=== PATIENT | female | born 1985 | race African-American/Black ===

== ENCOUNTER 2021-11-21 10:15 | Emergency (ER) | payer SELFPAY ==
[~2021-11-21] VITALS: Ht 172.7 cm; Wt 97.5 kg
--- NOTE | 2021-11-21 11:48 | NUR ---
SS consult: SS Consult requested for homelessness. The pt. is a 36-year-old Black female patient who came in for leg cramps and feeling dehydrated. Upon SS consult, the pt. is Alert & Oriented x 4 and makes good eye contact. The pt. appears disheveled with depressed mood & flat affect. pt.'s speech and thought process are WNL. Pt. remained calm & cooperative throughout interview. Pt. states she is having thoughts of suicide with no plan. pt. stated, "if I do not have luck out here in [place] I will just end my life. Pt. states she was hospitalized in 2019 [place] for SI. Pt. Refused to disclose if she has attempted to hurt herself in the past. Pt. denies HI and denies hallucinations. Pt. denies any previous diagnosis of mental illness. FARSHAD explored pt.'s living situation. Patient states she moved to [place] from [facility] as of November 09, 2021. Pt. states she moved because "people are after me". Pt. is guarded and refused to provide detailed information. FARSHAD explored pt.'s drug & ETOH use. Pt. denies any drug or alcohol use. Pt. is ambulatory and independent with all his ADL's per pt. FARSHAD explored pt.'s support system. Pt. states her family is in [place] but she is not in communication with them at this time. Pt. reports she as Medicaid from [place], [place] and provided her member ID FARSHAD provided tis to admitting to verify benefits. Plan: SW will be referred pt. to [facility] for inpatient psychiatric treatment when labs and insurance re verified. FARSHAD provided pt. with homeless and mental health resources, and she accepted them. Pt. signed homeless waiver and it was placed in the pt.'s chart. FARSHAD discussed DC plan with Krysten LEMON. Year-round shelters: [facility] [place] [address] [place], [place] [id number] ; [facility] [place] [address] [place] [address]; [place] [facility] [id number] [facility]. [facility] [address] Hygiene: [facility] [address] [place] ; [facility] [address] [facility] ; [facility] [address] . Food Resources: [facility] at [facility]- [address] [place]; Meet Each Need with Dignity ([facility]) [address] [place]; [facility] [address] [facility]; [facility] [address] [facility] [place]. Mental Health resources provided: [facility] [address] [place], [place] [address] ; [facility] [address] [facility] [address], [place], [place] [id number] ; [facility] [address] [place], [place] [phone] ; [facility] [place], [place] [address] Healthcare Clinics: [facility] [address] [facility], [address] [place]. [place] ; [facility] [address] [facility] [facility] [facility] [address] [place] [address]; [facility] [place] [address] [facility]. [place] [phone] Counseling--Outpatient [facility] [address], [address] [place], [place] [address] (Specializes in in-depth psychotherapy for emotional distress: anxiety, depression, interpersonal conflicts, life transitions, childhood abuse) [facility] [address] [place], [place] [address] (Assist with solving problem marital difficulties, separation & divorce, aging parents, & grief, chronic & terminal illness) [facility] [address] [place], [place] [address] (Deal with loss & grief, anxiety, marital difficulties) Homebound/Mental Health Services [address] [facility], [address] [place] [address] (Provide in-home mental services to people who are incapable of leaving their homes) [facility] [address] [place] [address] [facility] [address] [place] [address] PSYCHIATRIC OUTPATIENT SERVICES [facility] Partial Hospitalization and Intensive Outpatient Program (Managed Care and [place] Only)[address] [facility] [phone] [facility] Partial Hospitalization and Outpatient [id number] [place], [place] [phone] [facility] [place] [address] [facility] [address] [place], [place] [phone] [facility] Partial Hospitalization and Outpatient [id number] [place], [phone] Substance Abuse resources provided included: [facility] Substance Abuse Self-Helpline ([facility]) ; [facility]LP [address] [facility]. [place] [id number] ; [facility] [address] [facility] [address] ; [facility] [address] [facility] [address] ; [facility] [address] [facility] [address] ; [facility] 49[address] [facility] [address] ; [facility] [address] [facility] [address] ; [facility] Substance Abuse Helpline([facility] ; [facility] ; [facility] [place]; [facility] [place]; [facility] [address]; [facility] [place]; [facility] [place]; [facility] [place]; [facility], [facility]. Jason Webber; Alcoholics Anonymous -[facility]; Et-Gouj-Pkcywki ; Marijuana Anonymous -[facility]; Narcotics Anonymous www.[email or web address];
[2021-11-21 12:17] LABS: BASOPHILS % (AUTO) 0.3 % (0.0-2.0); EOSINOPHILS % (AUTO) 1.6 % (0.0-6.0); HEMATOCRIT 43 % (33-45); HEMOGLOBIN 13.6 g/dL (11.5-14.8); LYMPHOCYTES # (AUTO) 0.8 K/uL (0.8-4.8); LYMPHOCYTES % (AUTO) 12.8 % (20.0-44.0); MEAN CORPUSCULAR HGB CONC 32 g/dl (31.0-36.0); MEAN CORPUSCULAR VOLUME 84 fL (82-100); MONOCYTES # (AUTO) 0.5 K/uL (0.1-1.30); MONOCYTES % (AUTO) 8.3 % (2.0-12.0); NEUTROPHILS # (AUTO) 4.9 K/uL (1.8-8.9); PLATELET COUNT (AUTO) 204 K/uL (150-450); RED BLOOD CELL COUNT(AUTO) 5.04 MIL/uL (4.0-5.2); WHITE BLOOD COUNT (AUTO) 6.4 K/uL (4.3-11.0)
[2021-11-21 12:32] LABS: CALCIUM, SERUM 9.5 mg/dL (8.5-10.1); CARBON DIOXIDE 17 mmol/L (21-32); CHLORIDE 104 mmol/L (98-107); GLUCOSE 75 mg/dL (74-106); POTASSIUM 3.5 mmol/L (3.5-5.1); SODIUM SERUM 138 mmol/L (136-145); UREA NITROGEN, BLOOD 10 mg/dL (7-18)
[2021-11-21 12:37] LABS: ALANINE AMINOTRANSFERASE 25 U/L (12-78); ALBUMIN 4.2 g/dL (3.4-5.0); ALCOHOL, BLOOD < 3 mg/dL (0-0); ALKALINE PHOSPHATASE 68 U/L (46-116); ASPARTATE AMINOTRANSFERASE 20 U/L (15-37); BILIRUBIN,DIRECT 0.2 mg/dL (0.0-0.2); TOTAL PROTEIN, SERUM 8.7 g/dL (6.4-8.2)
[2021-11-21 12:52] LABS: ACETAMINOPHEN 0 ug/ml (10-30)
--- NOTE | 2021-11-21 13:50 | NUR ---
RAPID COVID SWAB DONE AND SENT TO LAB
[2021-11-21 15:45] LABS: BILIRUBIN,URINE SMALL (NEGATIVE); COLOR,URINE YELLOW (YELLOW); LEUKOCYTE ESTERASE ,URINE NEGATIVE (NEGATIVE); NITRITE, URINE NEGATIVE (NEGATIVE); PROTEIN,URINE 30 mg/dl (NEGATIVE); UGLUCOSE NEGATIVE (NEGATIVE)
[2021-11-21 15:53] LABS: BACTERIA,URINE None seen /HPF (None Seen); RBC,URINE 0-2 /HPF (0-2); URINE AMORPHOUS URATE Many /HPF (None Seen); WBC,URINE 0-2 /HPF (0-3)
--- NOTE | 2021-11-21 16:42 | NUR ---
Discharge note: [facility]. Pt. is alsert & oriented x4 and denies current SI/HI and denies hallucinations. FARSHAD provided pt. with bus TAP card and bus directions to [address] FARSHAD provided pt. with homeless resources to custodial, food tubbs, showers etc. and pt. accepted resources and is agreeable to custodial placement . Pt. signed homeless waiver and it was placed in the pt.'s chart. FARSHAD discussed with Nasim LEMON and Ofelia LEON.
--- NOTE | 2021-11-21 17:24 | NUR ---
Patient given written and verbal discharge instructions. Patient verbalizes understanding of instructions. Patient is ambulatory with steady gait. Refuses offer of [facility] placement. Patient given list of available shelters in surrounding area. Patient in proper clothing upon discharge. All belongings given back to patient. Name band removed.
[2021-11-21 17:27] VITALS: BP 129/74
== END 2021-11-21 17:28 | disposition home or self-care (01) ==
LOC: ER 10:17
DX: R45.851 Suicidal ideations (principal); Z59.00 Homelessness unspecified; R53.1 Weakness; Z20.822 Contact with and (suspected) exposure to COVID-19
CPT/HCPCS: 99285; 85025; 80048; 80076; 84703; 81001; 36415; 87426; 80143; 80320; 80307; C9803; G0480